=== PATIENT | male | born 1975 | race Caucasian/White ===

== ENCOUNTER 2018-05-27 15:56 | Emergency (ER) | payer OTHER ==
[2018-05-27 16:50] VITALS: TEMP 98.5
[2018-05-27] MEDS ORDERED: KETOROLAC 30 MG/ML 1 ML VIAL IM STA (17:29)
--- NOTE | 2018-05-27 17:30 | ED ---
General Adult HPI - General Chief complaint: Back Pain/Injury Stated complaint: [facility]-Back Pain Time Seen by Provider: 05/27/18 17:00 Source: patient, RN notes reviewed Mode of arrival: ambulatory Limitations: no limitations - History of Present Illness Initial comments: Patient is a 42-year-old male who presents to the emergency department with complaint of low back pain since May 04 when he was working on duct work at work. He denies any trauma or fall. He reports that he saw a doctor 1 week ago and had x-rays of his entire spine done and were normal, per patient. He reports having seen the worker's comp doctor through his work as well. He reports going to physical therapy. He has not taken anything for pain today. He would like to try Toradol here. He wants an MRI done now. Denies saddle anesthesia, bowel or bladder incontinence. Patient denies any recent fever, chills, shortness of breath, chest pain, abdominal pain, nausea or vomiting, numbness or tingling, headaches or visual changes, or any other complaints. - Related Data Previous Rx's Medication Instructions Recorded Ibuprofen [Motrin] 600 mg PO Q6HR PRN #28 05/27/18 Allergies Allergy/AdvReac Type Severity Reaction Status Date / Time No Known Allergies Allergy Verified 05/27/18 16:49 Review of Systems ROS Statement: Those systems with pertinent positive or pertinent negative responses have been documented in the HPI. ROS Other: All systems not noted in ROS Statement are negative. Past Medical History Past Medical History: No Reported History History of Any Multi-Drug Resistant Organisms: None Reported Additional Past Surgical History / Comment(s): NEPHRECTOMY Past Psychological History: No Psychological Hx Reported Smoking Status: Never smoker Past Alcohol Use History: Occasional Past Drug Use History: None Reported General Exam Limitations: no limitations General appearance: alert, in no apparent distress Head exam: Present: atraumatic, normocephalic Eye exam: Present: normal appearance Respiratory exam: Present: normal lung sounds bilaterally. Absent: wheezes, rales, rhonchi Cardiovascular Exam: Present: regular rate, normal rhythm Extremities exam: Present: normal capillary refill Back exam: Present: tenderness (Upper left trapezius muscle tenderness to palpation.). Absent: vertebral tenderness Neurological exam: Present: alert, oriented X3, normal gait. Absent: motor sensory deficit Skin exam: Present: warm, dry Course Vital Signs 05/27/18 05/27/18 16:46 17:34 Temperature 98.5 F Pulse Rate 94 82 Respiratory 16 20 Rate Blood Pressure 144/94 144/85 O2 Sat by Pulse 97 96 Oximetry Medical Decision Making - Medical Decision Making Patient presents to the ER asking for an MRI. No alarming symptoms found here. Will refer patient to orthopedics. Patient changed his mind and no longer wants Toradol here. Will prescribe ibuprofen. Case discussed in detail with attending physician Dr. Andres. Disposition Clinical Impression: Back pain Disposition: HOME SELF-CARE Condition: Good Instructions (If sedation given, give patient instructions): Back Pain (ED) Additional Instructions: Follow-up with your primary care provider and orthopedics in 1-2 days. Return to the emergency department if your symptoms worsen or any other concerns. Prescriptions: Ibuprofen [Motrin] 600 mg PO Q6HR PRN #28 PRN Reason: Pain Is patient prescribed a controlled substance at d/c from ED?: No Referrals: Clyde Snell DO [Primary Care Provider] - 1-2 days Moisés Ramírez MD [STAFF PHYSICIAN] - 1-2 days Time of Disposition: 18:25
[2018-05-27 17:42] VITALS: BP 144/85; PULSE 82; RESP 20
== END 2018-05-27 18:45 | disposition home or self-care (01) ==
LOC: EC 15:56
DX: M54.5 Low back pain (principal); Z90.5 Acquired absence of kidney; X58.XXXA Exposure to other specified factors, initial encounter; Y92.69 Other specified industrial and construction area as the place of occurrence of the external cause; Y99.0 Civilian activity done for income or pay; Z53.29 Procedure and treatment not carried out because of patient's decision for other reasons
CPT/HCPCS: 99283

== ENCOUNTER → 2018-09-10 | Outpatient (CLI) | payer OTHER ==
[2018-09-10 13:03] LABS: Appearance,Urine Clear (Clear); Bilirubin,Urine Negative (Negative); Blood,Urine Negative (Negative); Color,Urine Yellow; Glucose,Urine (UA) Trace (Negative); Ketones,Urine Negative (Negative); Leukocyte Esterase,Urine Negative (Negative); Nitrite,Urine Negative (Negative); Protein,Urine Negative (Negative); Specific Gravity,Urine 1.017 (1.001-1.035); Urobilinogen,Urine <2.0 mg/dL (<2.0)
[2018-09-10 13:11] LABS: INR 0.9 (<1.2); Partial Thromboplastin Time 23.4 sec (22.0-30.0); Prothrombin Time 9.7 sec (9.0-12.0)
[2018-09-10 13:12] LABS: Albumin 4.5 g/dL (3.5-5.0); Calcium 9.7 mg/dL (8.4-10.2); Potassium 4.3 mmol/L (3.5-5.1); Total Bilirubin 0.7 mg/dL (0.2-1.3); Total Protein 7.3 g/dL (6.3-8.2)
[2018-09-10 13:14] LABS: Basophils % (A) 1 %; Eosinophils # (A) 0.2 k/uL (0-0.7); Eosinophils % (A) 3 %; HCT 45.4 % (39.0-53.0); HGB 15.4 gm/dL (13.0-17.5); Lymphocytes # (A) 1.6 k/uL (1.0-4.8); Lymphocytes % (A) 30 %; MCH 31.9 pg (25.0-35.0); MCHC 33.8 g/dL (31.0-37.0); MCV 94.4 fL (80.0-100.0); Mean Platelet Volume 8.1; Monocytes # (A) 0.3 k/uL (0-1.0); Monocytes % (A) 6 %; Neutrophils # (A) 3.2 k/uL (1.3-7.7); Neutrophils % (A) 60 %; Platelet Count 228 k/uL (150-450); RBC 4.81 m/uL (4.30-5.90); RDW 15.1 % (11.5-15.5); WBC 5.3 k/uL (3.8-10.6)
--- NOTE | 2018-09-10 13:18 | XR ---
EXAMINATION TYPE: XR chest 2V DATE OF EXAM: 09/10/2018 COMPARISON: NONE TECHNIQUE: PA and lateral views submitted. HISTORY: pain low back FINDINGS: The lungs are clear and there is no pneumothorax, pleural effusion, or focal pneumonia. Hypertrophi c change of the spine. IMPRESSION: 1. No acute process.
== END | disposition home or self-care (01) ==
LOC: LABPAT 12:05
PROVIDERS: ATTEND Orthopaedic Surgery Orthopaedic Surgery of the Spine
DX: Z01.810 Encounter for preprocedural cardiovascular examination (principal); Z01.812 Encounter for preprocedural laboratory examination; M48.061 Spinal stenosis, lumbar region without neurogenic claudication
CPT/HCPCS: 71046; 80053; 81003; 85025; 85610; 85730; 87070; 93005

== ENCOUNTER → 2018-09-25 | Outpatient (CLI) | payer OTHER ==
--- NOTE | 2018-09-25 13:12 | NM ---
EXAMINATION TYPE: NM bone 3 phase DATE OF EXAM: 09/25/2018 COMPARISON: NONE HISTORY: 43-year-old male with low back pain, intervertebral disc degeneration, disorders with radicu lopathy, lumbar region Technique: Triple phase bone scintigraphy was performed following the injection of 25.6 mCi Tc 99m MD P. Immediate images and 3 hours post injection images acquired. Imaging was centered over the abdome n/lumbar spine FINDINGS: Posterior flow images centered along the lumbar spine show no activity to the left kidney. Otherwise, physiologic blood pool is demonstrated. Pool images show some right kidney and right ureteral activity. Delayed images show no focal abnormal increased tracer activity within the lumbar spine. IMPRESSION: 1. Absent activity to the left kidney. Correlate for surgical or congenital absence or renal atresia. 2. No specific abnormal tracer activity along the lumbar spine region.
== END | disposition home or self-care (01) ==
LOC: RADNMMAIN 06:58
PROVIDERS: ATTEND Orthopaedic Surgery Orthopaedic Surgery of the Spine
DX: M51.16 Intervertebral disc disorders with radiculopathy, lumbar region (principal); R93.422 Abnormal radiologic findings on diagnostic imaging of left kidney; M62.830 Muscle spasm of back; R20.2 Paresthesia of skin
CPT/HCPCS: 78315; A9503

== ENCOUNTER → 2018-10-19 | Outpatient (CLI) | payer OTHER ==
[2018-10-19 11:01] LABS: Basophils % (A) 0 %; Eosinophils # (A) 0.2 k/uL (0-0.7); Eosinophils % (A) 3 %; HCT 46.5 % (39.0-53.0); HGB 15.6 gm/dL (13.0-17.5); Lymphocytes # (A) 1.8 k/uL (1.0-4.8); Lymphocytes % (A) 29 %; MCH 31.9 pg (25.0-35.0); MCHC 33.5 g/dL (31.0-37.0); MCV 95.1 fL (80.0-100.0); Mean Platelet Volume 7.4; Monocytes # (A) 0.3 k/uL (0-1.0); Monocytes % (A) 5 %; Neutrophils # (A) 3.8 k/uL (1.3-7.7); Neutrophils % (A) 61 %; Platelet Count 239 k/uL (150-450); RBC 4.89 m/uL (4.30-5.90); RDW 12.5 % (11.5-15.5); WBC 6.3 k/uL (3.8-10.6)
[2018-10-19 11:11] LABS: INR 0.9 (<1.2); Partial Thromboplastin Time 23.9 sec (22.0-30.0); Prothrombin Time 9.8 sec (9.0-12.0)
[2018-10-19 11:12] LABS: Potassium 4.4 mmol/L (3.5-5.1)
[2018-10-19 11:29] LABS: Appearance,Urine Clear (Clear); Bacteria,Urine Rare /hpf; Bilirubin,Urine Negative (Negative); Blood,Urine Trace (Negative); Color,Urine Yellow; Glucose,Urine (UA) Negative (Negative); Hyaline Casts,Urine 2 /lpf (0-2); Ketones,Urine Negative (Negative); Leukocyte Esterase,Urine Negative (Negative); Mucus,Urine Moderate /hpf; Nitrite,Urine Negative (Negative); PH, Urine 5.5 (5.0-8.0); Protein,Urine 1+ (Negative); RBC,Urine 6 /hpf (0-5); Sperm,Urine Occasional /hpf; Squamous Epithelial Cell,Urine <1 /hpf (0-4); WBC,Urine 5 /hpf (0-5)
== END | disposition home or self-care (01) ==
LOC: LABPAT 10:29
PROVIDERS: ATTEND Orthopaedic Surgery Orthopaedic Surgery of the Spine
DX: Z01.812 Encounter for preprocedural laboratory examination (principal); M51.26 Other intervertebral disc displacement, lumbar region
CPT/HCPCS: 36415; 80048; 81001; 85025; 85610; 85730

== ENCOUNTER 2018-10-28 07:30 | Inpatient (IN) | payer OTHER ==
[~2018-10-28 07:30] MED LIST: BACITRACIN 50,000 UNIT, POLYMYXIN B 500,000 UNIT in SODIUM CHLORIDE 0.9% IRRIGATIO 1,00... IRRIGATION ONE; DEXAMETHASONE SOD PHOSPHATE 10 MG/ML 1 ML VIAL IV ONE; LIDOCAINE 1% 20 ML VIAL (10MG/ML) FOR IV START INTRADERMA PRN; ONDANSETRON 4 MG/2 ML VIAL IVP ONE; ONDANSETRON 4 MG/2 ML VIAL IVP PRN
[2018-10-28] MEDS: LACTATED RINGERS 1,000 ML IV SCH (10:03)
[2018-10-28] MEDS ORDERED: LIDOCAINE 1% INJ 10MG/ML (20 ML MDV) ONE (12:30)
[2018-10-28] MEDS ORDERED: SUCCINYLCHOLINE CHLORIDE 100 MG/5 ML SYR IV ONE (12:30)
[2018-10-28] MEDS ORDERED: fentaNYL (PF) 50 MCG/ML 2 ML AMP ONE (12:30)
[2018-10-28] MEDS ORDERED: PROPOFOL 10 MG/ML 20 ML VIAL IV ONE (12:30)
[2018-10-28] MEDS ORDERED: THROMBIN (BOVINE) 5,000 UNIT VIAL TOPICAL ONE (12:30)
[2018-10-28] MEDS ORDERED: LIDOCAINE 0.5%-EPI 1:200,000 50 ML VIAL SQ ONE (12:30)
[2018-10-28] MEDS ORDERED: MIDAZOLAM 2 MG/2 ML VIAL ONE (12:30)
[2018-10-28] MEDS ORDERED: HYDROmorphone (PF) 1 MG/ML ONE (12:30)
[2018-10-28] MEDS ORDERED: GELATIN SPONGE,ABSORB (LARGE) 1 EACH SPONGE TOPICAL ONE (12:30)
[2018-10-28] MEDS ORDERED: NEOSTIGMINE 1 MG/ML 10 ML VIAL ONE (12:30)
[2018-10-28] MEDS ORDERED: KETAMINE 10 MG/ML 20 ML VIAL ONE (12:30)
[2018-10-28] MEDS ORDERED: DEXAMETHASONE SOD PHOS (MDV) 100 MG/10 ML VIAL ONE (12:30)
[2018-10-28] MEDS ORDERED: ROCURONIUM BROMIDE 10 MG/ML 10 ML VIAL IV ONE (12:30)
[2018-10-28] MEDS ORDERED: PHENYLEPHRINE-0.9% NACL SYG 1 MG/10 ML SYRINGE ONE (12:30)
[2018-10-28] MEDS ORDERED: GLYCOPYRROLATE 0.2 MG/ML 2 ML VIAL ONE (12:30)
[2018-10-28] MEDS: HYDROmorphone 0.5 MG/0.5 ML SYRINGE IVP PRN ×5 (14:09→16:45)
[2018-10-28] MEDS ORDERED: LACTATED RINGERS 1,000 ML IV ONE (14:37)
[2018-10-28] MEDS ORDERED: HYDROcodone/APAP 5-325MG 1 EACH TAB PO PRN (15:39)
[2018-10-28] MEDS ORDERED: BENZOCAINE/MENTHOL LOZENG 1 EACH LOZENGE MUCOUS MEM PRN (15:39)
[2018-10-28] MEDS ORDERED: MAGNESIUM HYDROXIDE 2,400 MG/10 ML CUP PO PRN (15:39)
[2018-10-28] MEDS ORDERED: HYDROmorphone 0.5 MG/0.5 ML SYRINGE IVP PRN (15:39)
--- NOTE | 2018-10-28 15:41 | XR ---
EXAMINATION TYPE: XR lumbar spine 1V, FL guidance operating room DATE OF EXAM: 10/28/2018 CLINICAL HISTORY: Minimally invasive lumbar surgery. Fluoroscopic documentation. TECHNIQUE: Fluoroscopy. COMPARISON: None. FINDINGS: Fluoroscopic guidance was provided during pain relief procedure performed by Dr. Haas. A total of 1 minute and 40 seconds of fluoroscopic time was utilized during the procedure and 3 spot i mages are acquired. Images acquired shows needle localization at multiple levels in the lumbar spine. IMPRESSION: As Above.
--- NOTE | 2018-10-28 15:48 | P.OP ---
Date of Procedure: 10/28/18 Preoperative Diagnosis: Herniated nucleus pulposis L4 5, stenosis L4 5, low back pain, lower extremity radiculopathy Postoperative Diagnosis: Same Anesthesia: GETA Pathology: none sent Condition: stable Disposition: PACU Description of Procedure: DESCRIPTION OF PROCEDURE(S): BRIEF OPERATIVE NOTE Preoperative Diagnosis: Herniated nucleus pulposis L4 5, stenosis L4 5, low back pain, lower extremity radiculopathy Postoperative Diagnosis:Herniated nucleus pulposis L4 5, stenosis L4 5, low back pain, lower extremity radiculopathy Procedure: Laminectomy and decompression L4 5 Minimally invasive Posterior lateral decompression and facet fusion L4 5 Minimally invasive Transforaminal lumbar interbody fusion for a 360 fusion L4 5 Discectomy for decompression L4 5 Placement of interbody graft L4 5 Local autogenous bone grafting Harvesting of bone marrow aspirate. The vertebral body and pedicle of L4 Use of Cell Saver Use of bone graft extenders Surgeon: Dr. Haas Nitrocellulose Operator: James BERUMEN who is present throughout the entire the case persistence during positioning, dissection, exposure, visualization, and all crucial elements of the case as well as closure. Anesthesia: General anesthesia per Dr. Mullen Estimated blood loss: Approximately 150 mL Complications: None apparent Components implanted: K2M minimally invasive [place] pedicle screw system with disc 8013 mm interbody cage with 1 large osteal amp sponge and 30 mL of DBX bone fibers to supplemental local autogenous and bone marrow aspirate graft Disposition: To recovery room in good stable condition. OPERATIVE INDICATIONS The patient has had long-standing issues in their lower back and lower extremities. He started having pain when he had an injury in May. Since that time he has had severe problems in his back and into his lower extremities. He was found have significant changes at his lumbar spine with disc herniation causing compression bilaterally which correlated with his low back and lower extremity symptoms. The patient was not having any significant or long-term response to aggressive conservative treatment over the past 6 months. The patient has been through conservative treatment. We discussed various treatment options including surgery, and the patient wishes to proceed with surgery We discussed the risk, patient's alternatives and benefits of surgery including but not limited to, risk of bleeding risk of infection, risk of need for further surgery, risk of decreased, loss of motion, muscle function, malunion nonunion, hardware failure, nerve damage, paralysis, heart attack, blindness and . OPERATIVE SUMMARY After discussing all the risks, patient alternatives and benefits at length, the patient elected to proceed with surgical intervention, signed informed consent, and presented for their procedure. The patient was seen and examined in the preoperative holding area and the surgical site was marked. The patient was given antibiotics and brought to the operating room. The patient was sedated and intubated by anesthesia in standard fashion. The patient was positioned on to the operating room table in a prone position on the appropriate frame which was well-padded and well molded. We were careful to pad any bony prominences and pressure points. We were careful to maintain the patient's cervical spine and good neutral alignment and position throughout. The patient was prepped and draped in a normal standard fashion. An appropriate timeout and keystone protocol performed. We were able to proceed with the surgery. The local wound area was infiltrated with local anesthetic. I was able utilize C-arm guidance to establish appropriate position over the pedicles bilaterally at the appropriate levels at L4 5. With the appropriate levels confirmed was able to make small stab incisions over the appropriate pedicle sites bilaterally. Utilizing C-arm in his house able to establish a Jamshidi needle over the lateral aspect of the pedicle and advanced the trocar into the pedicle being careful not to breech superiorly inferiorly medially or laterally. Position was confirmed regularly with AP and lateral images on C- arm. I was able to establish the trocar into the pedicle appropriately into the posterior aspect of the vertebral body bilaterally at the appropriate levels at L4 5. This was done at each of the pedicle positions and each of the vertebrae. I was able place the guidewire into the trocar and into the vertebral body appropriately under C-arm guidance. At L4 on the right was able to withdraw approximately 20 mL of bone marrow aspirate through the trocar from the vertebral body. Dissection was taken down over the wire to the appropriate starting position for the screw placed. The appropriate length screw was chosen, threaded over the guidewire and screwed appropriately into the pedicle and vertebral body under C-arm guidance in excellent alignment and position with good bony purchase. This is done at each of the screw sites at the appropriate levels at L4 and L5. With the screws intact I extended the incision to connect the screw hole sites on the most symptomatic side on the left. I dissected down to establish access over the pars and lamina to the base of the spinous process. I was able to expose the facet joint. The capsule the facet was taken down and showed some facet arthrosis at the joint. I was able to use a combination of curettes and [place] rongeurs and a high-speed drill to take down the facet joint and do a facetectomy. Partial laminectomy was also performed. I was able get excellent foraminal decompression and central decompression with undermining across midline to perform a laminectomy centrally and contralaterally. I was able get good central decompression. The ligamentum flavum was taken down to further decompress centrally and at bilateral neural foramen. I was able to expose the disc space and visualize the traversing nerve root. Note was made of disc herniation and protrusion at the level causing further compression of the nerve root. I was able to establish a annulotomy at the appropriate level protecting soft tissue and neural structures. I performed a complete discectomy with a combination of curettes and rasps and scrapers. I was able get good endplate preparation at the disc space. I sized for the appropriate size interbody spacer protecting the soft tissue and neural structures. The wound was copiously irrigated and suctioned dry. There is no evidence of any dural tear or leak. I was able to pack the disc space with local autogenous bone graft as well as a small amount of bone graft which was also placed into the interbody cage itself. The patient had a fairly tall disc space and we used a 13 mm interbody cage. Protecting the soft tissue structures and neural structures I was able place the interbody cage in good alignment and good position with good fit and fill at the interbody space. His issues was confirmed with C-arm guidance. Good hemostasis maintained. There is no evidence of any dural tear or leak. The wound was irrigated and suctioned dry. With the hardware intact, intraoperative C-arm imaging was again taken which showed good alignment and position of the hardware at the appropriate levels. We were then able to measure, contour and place the rods and appropriate hardware bilaterally. I was able to place capcrews, tighten them down, and torque them with the torque screwdriver appropriately. With this intact I was able to place the local autogenous bone graft with additional bone graft enhancer as necessary into the posterior lateral gutters over the decorticated transverse processes and facet joint. The remainder of the bone graft was placed over the facet joint on the contralateral side after taking down the facet joint capsule. With the bone graft intact, a stable construct, and good decompression at the appropriate levels, we were able to proceed with closure. Good hemostasis was maintained. There is no evidence of dural tear or leak. The fascia was closed for a watertight closure. he subcuticular tissue was closed with absorbable suture. The wound was cleaned and dried and dressed with the appropriate dressing. The drapes were broken down. The patient was gently rolled back onto their hospital bed being careful to maintain their cervical spine and good neutral alignment and position. They were woken up by anesthesia, extubated, and brought to the recovery room in good stable condition. The patient will be admitted to the hospital for appropriate postoperative care, medical management and monitoring. We will continue to follow them closely about the postoperative course.
[2018-10-28] MEDS: SODIUM CHLORIDE 0.9% 1,000 ML IV SCH (16:49)
[2018-10-28 17:14] VITALS: BMI 42.2
[2018-10-28] MEDS: ceFAZolin 3 GM in SODIUM CHLORIDE 0.9% 100 ML IVPB SCH ×2 (17:42→23:14)
[2018-10-28] MEDS: KETOROLAC 30 MG/ML 1 ML VIAL IVP SCH ×3 (17:45→20:52)
[2018-10-28] MEDS: HYDROcodone/APAP 5-325MG 1 EACH TAB PO PRN (21:07)
[2018-10-28] MEDS ORDERED: ONDANSETRON 4 MG/2 ML VIAL IVP PRN (21:31)
--- NOTE | 2018-10-28 22:38 | P.CONS ---
History of Present Illness - Reason for Consult Consult date: 10/28/18 Medical management Requesting physician: Angela Haas - Chief Complaint Back pain - History of Present Illness Consultation: This is a 43-year-old patient who is a long-standing history of back pain. It has been progressively getting worse. Initially was localized to lower back. This started rate radiating down the left leg. Continued to get worse. It was worse with activity and better with rest. Since conservative management had failed decided to proceed for surgery. No involvement of bowel or urine. Patient has undergone lumbar surgery today. Has significant pain. Some pain in the right leg. is present. No nausea vomiting. Review of systems: GEN.: None EYES: None HEENT: None NECK: None RESPIRATORY: None CARDIOVASCULAR: None GASTROINTESTINAL: None GENITOURINARY: None MUSCULOSKELETAL: As above LYMPHATICS: None HEMATOLOGICAL: None PSYCHIATRY: None NEUROLOGICAL: Radiculopathy as above Past medical history: Chronic low back pain Social history: Does does not smoke. Alcohol occasionally. Works with heating and cooling. . Family history: Reviewed, noncontributory to presentation Physical examination: VITAL SIGNS: Noted in the electronic records from today GENERAL: [BMI 40.4, laying in bed somewhat uncomfortable]. EYES: [Pupils equal. Conjunctiva saadia]l. HEENT: [External appearance of nose and ears normal, oral cavity grossly normal]. NECK: [JVD not raised; masses not palpable]. HEART: [First and second heart sounds are normal; no edema]. LUNGS:[ Respiratory rate normal; clear to auscultation]. ABDOMEN: [Soft, nontender, liver spleen not palpable, no masses palpable]. PSYCH: [Alert and oriented x3; mood and affect saadia]l. NEUROLOGICAL: [Cranial nerves grossly intact; no facial asymmetry, ]. LYMPHATICS: [No lymph nodes palpable in the axilla and neck MUSCULOSKELETAL: Dressing over the lumbar spine] INVESTIGATIONS, reviewed in the clinical context: White count 6.3 hemoglobin 15.6 creatinine 1.39 from October 19 Assessment: -Herniated nucleus pulposis L4 5, stenosis L4 5, low back pain, lower extremity radiculopathy, leading to laminectomy and decompression L4-L5 -Morbid obesity BMI 40.4 -We'll rule out chronic kidney disease. Patient urine had 1+ protein on October 19 Plan: Continue current medication due to plan. Order renal ultrasound. Patient has currently Venodyne boots for DVT prophylaxis. Care was discussed with the patient and at the bedside Thank you Dr. Haas Past Medical History Past Medical History: No Reported History Additional Past Medical History / Comment(s): herniated disk, History of Any Multi-Drug Resistant Organisms: None Reported Additional Past Surgical History / Comment(s): NEPHRECTOMY(donated left kidney) Past Anesthesia/Blood Transfusion Reactions: No Reported Reaction Additional Past Anesthesia/Blood Transfusion Reaction / Comm: very large neck noted by PCP on clearance form Smoking Status: Never smoker - Past Family History Father Family Medical History: Cancer Medications and Allergies Home Medications Medication Instructions Recorded Confirmed Type No Known Home Medications 09/17/18 10/28/18 History Allergies Allergy/AdvReac Type Severity Reaction Status Date / Time No Known Allergies Allergy Verified 10/28/18 09:43 Physical Exam Vitals: Vital Signs Temp Pulse Pulse Resp BP BP Pulse Ox 10/28/18 19:26 97.9 F 92 12 133/85 97 10/28/18 17:45 82 130/83 97 10/28/18 17:30 86 125/86 96 10/28/18 17:15 89 118/83 95 10/28/18 17:00 98 F 85 16 129/85 93 L 10/28/18 16:45 76 18 156/81 97 10/28/18 16:30 84 16 158/81 96 10/28/18 16:15 73 20 146/88 97 10/28/18 16:00 75 16 122/79 98 10/28/18 15:47 96.9 F L 76 14 143/87 10/28/18 10:02 97.2 F L 52 L 16 151/97 96 Intake and Output 10/28/18 10/28/18 10/28/18 06:59 14:59 22:59 Intake Total 1751 350 Output Total 395 Balance 1751 -45 Intake: IV 1751 350 Output: Urine 355 Estimated Blood Loss 40
[2018-10-28] MEDS: HYDROmorphone 1 MG/ML 1 ML SYRINGE IVP PRN (23:14)
[2018-10-29] MEDS: KETOROLAC 30 MG/ML 1 ML VIAL IVP SCH ×5 (00:04→23:47)
[2018-10-29] MEDS: HYDROcodone/APAP 5-325MG 1 EACH TAB PO PRN ×3 (01:32→09:58)
[2018-10-29] MEDS: HYDROmorphone 1 MG/ML 1 ML SYRINGE IVP PRN ×4 (03:26→20:30)
[2018-10-29] MEDS: SODIUM CHLORIDE 0.9% 1,000 ML IV SCH ×2 (05:15→23:53)
[2018-10-29] MEDS: LACTATED RINGERS 1,000 ML IV SCH (05:16)
[2018-10-29 07:39] LABS: Basophils % (A) 0 %; Eosinophils # (A) 0.1 k/uL (0-0.7); Eosinophils % (A) 1 %; HCT 41.3 % (39.0-53.0); HGB 13.6 gm/dL (13.0-17.5); Lymphocytes # (A) 0.8 k/uL (1.0-4.8); Lymphocytes % (A) 5 %; MCH 31.5 pg (25.0-35.0); MCV 95.7 fL (80.0-100.0); Mean Platelet Volume 7.8; Monocytes # (A) 0.8 k/uL (0-1.0); Monocytes % (A) 5 %; Neutrophils # (A) 13.4 k/uL (1.3-7.7); Neutrophils % (A) 88 %; Platelet Count 212 k/uL (150-450); RBC 4.31 m/uL (4.30-5.90); RDW 12.4 % (11.5-15.5); WBC 15.3 k/uL (3.8-10.6)
[2018-10-29 07:53] LABS: Calcium 9.3 mg/dL (8.4-10.2); Potassium 4.6 mmol/L (3.5-5.1)
[2018-10-29] MEDS: SENNOSIDES-DOCUSATE SODIUM 1 EACH TAB PO SCH (08:25)
--- NOTE | 2018-10-29 10:16 | P.PN ---
Progress Note - Text Progress Note Date: 10/29/18 Postoperative day #1 Patient is seen and examined today at bedside. The patient has some pain around the surgical site as expected. Pain is being controlled with medication. He is experiencing quite a bit of spasm in his low back which is quite severe for him. He is also having some soreness over his left shoulder. He denies weakness in his left arm or his legs. Physical Exam Afebrile with stable vital signs Abdomen is soft nontender. Chest has good excursion deep and space expiration The incision site is clean dry and intact. No erythema there is no purulence. Extremities have not had neurologic change from prior to surgery. He has good motion in his left upper extremity and bilateral lower extremities. His spasms in his low back pain tries to move. Calves and thighs were soft nontender without evidence of DVT. Assessment/Plan Postoperative day #1 status post minimally invasive decompression and fusion L4 5 for his disc herniation with stenosis Patient is progressing as expected from the surgery. He is experiencing significant spasm in his back and for his left shoulder and may do well with a muscle relaxant and possibly Valium an as-needed basis. He has not yet been out of bed and will try to get him mobile today with physical therapy. We will continue to increase the patient's mobilization with therapy. We will continue pain control with oral or IV medications. We'll continue to follow patient closely.
[2018-10-29] MEDS: CYCLOBENZAPRINE 10 MG TAB PO PRN (11:19)
--- NOTE | 2018-10-29 16:33 | P.PN ---
Progress Note - Text Progress Note Date: 10/29/18 - Chief Complaint Back pain Interval history: This is a 43-year-old patient who is a long-standing history of back pain. It has been progressively getting worse. Initially was localized to lower back. This started rate radiating down the left leg. Continued to get worse. It was worse with activity and better with rest. Since conservative management had failed decided to proceed for surgery. No involvement of bowel or urine. Patient has undergone lumbar surgery Today-laying in bed. Still having significant lower back pain. At the operative site. Did make urine. Did tolerate some diet. Her nausea vomiting. at the bedside. Review of systems: Was done for constitutional, cardiovascular, GI, pulmonary. Musculoskeletal, relevant finding as above Active Medications Hydrocodone Bitart/Acetaminophen ([place] 5-325) 1 each PO Q4HR PRN PRN Reason: Moderate Pain Hydrocodone Bitart/Acetaminophen ([place] 5-325) 2 each PO Q4HR PRN PRN Reason: Moderate Pain Last Admin: 10/29/18 09:58 Dose: 2 each Documented by: Benzocaine/Menthol (Cepacol Lozenge) 1 each MUCOUS MEM Q4HR PRN PRN Reason: Sore Throat Cyclobenzaprine HCl (Flexeril) 10 mg PO TID PRN PRN Reason: Muscle Spasm Last Admin: 10/29/18 11:19 Dose: 10 mg Documented by: Diazepam (Valium) 5 mg PO BID JIGNESH Hydromorphone HCl (Dilaudid) 0.5 mg IVP Q4HR PRN PRN Reason: Pain Last Admin: 10/28/18 19:20 Dose: 0.5 mg Documented by: Hydromorphone HCl (Dilaudid) 1 mg IVP Q4HR PRN PRN Reason: Pain Last Admin: 10/29/18 16:08 Dose: 1 mg Documented by: Lactated Ringer's (Lactated Ringers) 1,000 mls @ 20 mls/hr IV .Q24H [facility] Last Admin: 10/29/18 05:16 Dose: Not Given Documented by: Sodium Chloride (Saline 0.9%) 1,000 mls @ 75 mls/hr IV .[id number] [facility] Last Admin: 10/29/18 05:15 Dose: 75 mls/hr Documented by: Ketorolac Tromethamine (Toradol) 30 mg IVP Q6HR JIGNESH Stop: 10/30/18 06:01 Last Admin: 10/29/18 12:31 Dose: 30 mg Documented by: Lidocaine HCl (.Xylocaine 1% Inj (10mg/Ml) For Iv Start) 0.1 ml INTRADERMA PER PROTOCOL PRN PRN Reason: IV Start Last Admin: 10/28/18 10:03 Dose: 0.1 ml Documented by: Magnesium Hydroxide (Milk Of Magnesia) 2,400 mg PO DAILY PRN PRN Reason: Constipation Ondansetron HCl (Zofran) 4 mg IVP ONCE PRN PRN Reason: Nausea And Vomiting Stop: 10/31/18 06:01 Last Admin: 10/28/18 21:08 Dose: 4 mg Documented by: Ondansetron HCl (Zofran) 4 mg IVP Q6HR PRN PRN Reason: Nausea And Vomiting Last Admin: 10/29/18 06:08 Dose: 4 mg Documented by: Senna/Docusate Sodium (Senokot-S) 1 each PO DAILY JIGNESH Last Admin: 10/29/18 08:25 Dose: Not Given Documented by: Physical examination: VITAL SIGNS: 98, 86, 16, 1 once , 97% on 3 L GENERAL: [BMI 40.4, laying in bed somewhat uncomfortable]. EYES: [Pupils equal. Conjunctiva saadia]l. HEENT: [External appearance of nose and ears normal, oral cavity grossly normal]. NECK: [JVD not raised; masses not palpable]. HEART: [First and second heart sounds are normal; no edema]. LUNGS:[ Respiratory rate normal; clear to auscultation]. ABDOMEN: [Soft, nontender, liver spleen not palpable, no masses palpable]. PSYCH: [Alert and oriented x3; mood and affect saadia]l. MUSCULOSKELETAL: Dressing over the lumbar spine] INVESTIGATIONS, reviewed in the clinical context: White count 15.3 hemoglobin 13.6 potassium 4.6 Assessment: -Herniated nucleus pulposis L4 5, stenosis L4 5, low back pain, lower extremity radiculopathy, leading to laminectomy and decompression L4-L5 -Morbid obesity BMI 40.4 -No chronic kidney disease -Leukocytosis likely reactive from surgery. No evidence of infection Plan: Care was discussed with the patient and the . Encouraged to be out of bed. Pain control is in place. We'll follow Thank you Dr. Haas
[2018-10-29] MEDS: DIAZEPAM 5 MG TAB PO SCH (20:37)
[2018-10-30] MEDS: HYDROmorphone 1 MG/ML 1 ML SYRINGE IVP PRN (04:37)
[2018-10-30] MEDS: KETOROLAC 30 MG/ML 1 ML VIAL IVP SCH (05:16)
[2018-10-30] MEDS: LACTATED RINGERS 1,000 ML IV SCH (05:28)
[2018-10-30] MEDS: HYDROcodone/APAP 5-325MG 1 EACH TAB PO PRN ×3 (06:01→18:19)
[2018-10-30] MEDS: DIAZEPAM 5 MG TAB PO SCH ×2 (07:35→20:44)
[2018-10-30] MEDS: SENNOSIDES-DOCUSATE SODIUM 1 EACH TAB PO SCH (07:35)
[2018-10-30] MEDS: SODIUM CHLORIDE 0.9% 1,000 ML IV SCH ×3 (09:52→22:15)
[2018-10-30] MEDS: CYCLOBENZAPRINE 10 MG TAB PO PRN (10:49)
--- NOTE | 2018-10-30 12:25 | P.PN ---
Progress Note - Text Progress Note Date: 10/30/18 Postoperative day #2 Patient is seen and examined today at bedside. The patient has some pain around the surgical site as expected. Pain is being controlled with medication. His pain is significantly better controlled today though he still needed some IV medication earlier this morning. He has been up and ambulatory into the halls a couple of times a day. He is tolerating his regular diet. He is voiding freely. He is not yet had a bowel movement. Physical Exam Afebrile with stable vital signs Abdomen is soft nontender. Chest has good excursion deep and space expiration The incision site is clean dry and intact. No erythema there is no purulence. There is no active drainage. Extremities have not had neurologic change from prior to surgery. He has sustained dorsal flexion plantar flexion and EHL intact. Negative Homans. Calves and thighs were soft nontender without evidence of DVT. Assessment/Plan Postoperative day #2 status post minimally invasive decompression and fusion L4 5 for his stenosis with disc herniation low back and lower extremity radiculopathy Patient is progressing as expected from the surgery. He has made good progress since yesterday and seems to be cardiac order to some degree. He still requiring some IV pain medications and hopefully will be able to wean down from this to be able convert is fully orals before he goes home. We will continue to increase the patient's mobilization with therapy. We will continue pain control with oral or IV medications. I think that he'll be okay for discharge home likely tomorrow morning on Friday. Potentially he could home this evening if he is comfortable without further IV pain medications we will plan for the morning for now. We'll continue to follow patient closely.
--- NOTE | 2018-10-30 23:17 | P.PN ---
Progress Note - Text Progress Note Date: 10/30/18 - Chief Complaint Back pain Interval history: This is a 43-year-old patient who is a long-standing history of back pain. It has been progressively getting worse. Initially was localized to lower back. This started rate radiating down the left leg. Continued to get worse. It was worse with activity and better with rest. Since conservative management had failed decided to proceed for surgery. No involvement of bowel or urine. Patient has undergone lumbar surgery Today-doing much better today. Waiting for dressing to be changed redness of the patient early this afternoon. Did walk in the hallway. Eating better. At the bedside. Review of systems: Was done for constitutional, cardiovascular, GI, pulmonary. Musculoskeletal, relevant finding as above Active Medications Hydrocodone Bitart/Acetaminophen ([place] 5-325) 1 each PO Q4HR PRN PRN Reason: Moderate Pain Hydrocodone Bitart/Acetaminophen ([place] 5-325) 2 each PO Q4HR PRN PRN Reason: Moderate Pain Last Admin: 10/30/18 18:19 Dose: 2 each Documented by: Benzocaine/Menthol (Cepacol Lozenge) 1 each MUCOUS MEM Q4HR PRN PRN Reason: Sore Throat Cyclobenzaprine HCl (Flexeril) 10 mg PO TID PRN PRN Reason: Muscle Spasm Last Admin: 10/30/18 10:49 Dose: 10 mg Documented by: Diazepam (Valium) 5 mg PO BID [facility] Last Admin: 10/30/18 20:44 Dose: 5 mg Documented by: Hydromorphone HCl (Dilaudid) 0.5 mg IVP Q4HR PRN PRN Reason: Pain Last Admin: 10/28/18 19:20 Dose: 0.5 mg Documented by: Hydromorphone HCl (Dilaudid) 1 mg IVP Q4HR PRN PRN Reason: Pain Last Admin: 10/30/18 04:37 Dose: 1 mg Documented by: Sodium Chloride (Saline 0.9%) 1,000 mls @ 75 mls/hr IV .[id number] [facility] Last Admin: 10/30/18 22:15 Dose: Not Given Documented by: Magnesium Hydroxide (Milk Of Magnesia) 2,400 mg PO DAILY PRN PRN Reason: Constipation Ondansetron HCl (Zofran) 4 mg IVP ONCE PRN PRN Reason: Nausea And Vomiting Stop: 10/31/18 06:01 Last Admin: 10/28/18 21:08 Dose: 4 mg Documented by: Ondansetron HCl (Zofran) 4 mg IVP Q6HR PRN PRN Reason: Nausea And Vomiting Last Admin: 10/29/18 06:08 Dose: 4 mg Documented by: Senna/Docusate Sodium (Senokot-S) 1 each PO DAILY JIGNESH Last Admin: 10/30/18 07:35 Dose: 1 each Documented by: Physical examination: VITAL SIGNS: 98.7, 76, 16, 115/71, 96% room air GENERAL: [BMI 40.4, laying in bed more comfortable today]. EYES: [Pupils equal. Conjunctiva saadia]l. HEENT: [External appearance of nose and ears normal, oral cavity grossly normal]. NECK: [JVD not raised; masses not palpable]. HEART: [First and second heart sounds are normal; no edema]. LUNGS:[ Respiratory rate normal; clear to auscultation]. ABDOMEN: [Soft, nontender, liver spleen not palpable, no masses palpable]. PSYCH: [Alert and oriented x3; mood and affect saadia]l. MUSCULOSKELETAL: Dressing over the lumbar spine] INVESTIGATIONS, reviewed in the clinical context: No labs from today Assessment: -Herniated nucleus pulposis L4 5, stenosis L4 5, low back pain, lower extremity radiculopathy, leading to laminectomy and decompression L4-L5 -Morbid obesity BMI 40.4 -No chronic kidney disease -Leukocytosis likely reactive from surgery. No evidence of infection Plan: Care was discussed with the patient and . Doing better. Also discussed with Dr. Haas.
[2018-10-31] MEDS: HYDROcodone/APAP 5-325MG 1 EACH TAB PO PRN ×3 (00:36→11:04)
[2018-10-31 01:47] VITALS: RESP 18
[2018-10-31] MEDS: DIAZEPAM 5 MG TAB PO SCH (07:33)
[2018-10-31] MEDS: SENNOSIDES-DOCUSATE SODIUM 1 EACH TAB PO SCH (07:33)
[2018-10-31 07:51] VITALS: BP 122/85; PULSE 72; TEMP 98.1
--- NOTE | 2018-10-31 09:19 | P.DS ---
Providers Date of admission: 10/28/18 09:11 Expected date of discharge: 10/31/18 Attending physician: Angela Haas Consults: 10/28/18 15:41 Consult Physician Routine Consulting Provider: Oliverio Hoskins Consult Reason/Comments: Medical management Do you want consulting provider notified?: Yes Primary care physician: Clyde Snell - Discharge Diagnosis(es) (1) Status post lumbar spinal fusion Current Visit: Yes Status: Acute Hospital Course: The patient is a 43 -year-old male who is status post minimally invasive decompression and fusion L4-L5 on 10/28/[address] Haas. Patient has known history of low back pain and presented to discuss options. After discussion and consideration, patient elected to proceed with surgery. The patient was seen preoperatively and medically cleared for surgery by his primary care physician. The procedure was performed without complications or sequelae. The patient was seen and evaluated at bedside today and denies any new complaints. Pain is reasonably controlled. Dressing is clean dry and intact. The dressing was changed today. His abdomen is soft and nontender. Dorsiflexion, plantarflexion, extensor hallucis longus positive sustaining bilaterally. Calves are soft and nontender. The patient has full foot and ankle motion without difficulty. Patient's bilateral lower extremities are neurovascular intact. Patient is orthopedically stable for discharge to home today. Pertinent Studies: Laboratory Tests 10/29/18 07:26 WBC 15.3 H RBC 4.31 Hgb 13.6 Hct 41.3 Patient Condition at Discharge: Stable Plan - Discharge Summary Discharge Rx Participant: Yes New Discharge Prescriptions: New Cyclobenzaprine [Flexeril] 10 mg PO TID PRN #90 tab PRN Reason: Spasms HYDROcodone/APAP 5-325MG [[place] 5] 1 each PO Q4HR PRN #42 tab PRN Reason: Pain Discharge Medication List Cyclobenzaprine [Flexeril] 10 mg PO TID PRN #90 tab 10/30/18 [Rx] HYDROcodone/APAP 5-325MG [[place] 5] 1 each PO Q4HR PRN #42 tab 10/30/18 [Rx] Follow up Appointment(s)/Referral(s): Anglea Haas DO [Doctor of Osteopathic Medicine] - 2 Weeks [facility]Equipment [NON-STAFF] - As Needed (walker) Activity/Diet/Wound Care/Special Instructions: Keep site clean. May shower with waterproof Tegaderm intact. Do not soak in a tub. On November 02 the patient May remove dressing and then may shower with area uncovered. Leave Steri-Strips intact and allow them to fray off on their own. May ambulate as tolerated. Avoid heavy or rigorous activity. No repetitive bending twisting or lifting. No overhead work. Discharge Disposition: HOME SELF-CARE
[2018-10-31] MEDS: SODIUM CHLORIDE 0.9% 1,000 ML IV SCH (10:30)
== END 2018-10-31 11:19 | disposition home or self-care (01) | DRG 454 ==
LOC: 2ORMAIN 09:11 → 4SSUR 15:36
PROVIDERS: ADMIT Orthopaedic Surgery Orthopaedic Surgery of the Spine; ATTEND Orthopaedic Surgery Orthopaedic Surgery of the Spine
PROC: 0SG00AJ Fusion of Lumbar Vertebral Joint with Interbody Fusion Device, Posterior Approach, Anterior Column, Open Approach (ICD-10-PCS; principal; 2018-10-28 10:40)
PROC: 07DS3ZZ Extraction of Vertebral Bone Marrow, Percutaneous Approach (ICD-10-PCS; principal; 2018-10-28 10:40)
PROC: 0ST20ZZ Resection of Lumbar Vertebral Disc, Open Approach (ICD-10-PCS; principal; 2018-10-28 10:40)
PROC: 0SG0071 Fusion of Lumbar Vertebral Joint with Autologous Tissue Substitute, Posterior Approach, Posterior Column, Open Approach (ICD-10-PCS; principal; 2018-10-28 10:40)
DX: M48.061 Spinal stenosis, lumbar region without neurogenic claudication (principal); Z68.41 Body mass index [BMI] 40.0-44.9, adult; E66.01 Morbid (severe) obesity due to excess calories; M51.16 Intervertebral disc disorders with radiculopathy, lumbar region; D72.829 Elevated white blood cell count, unspecified; Z90.5 Acquired absence of kidney
CPT/HCPCS: 72020; 80048; 85025; 86850; 86900; 86901

== ENCOUNTER 2022-02-25 14:54 | Emergency (ER) | payer MEDICARE, OTHER ==
[2022-02-25 15:23] VITALS: TEMP 98
[2022-02-25 15:50] LABS: Basophils % (A) 1 %; Eosinophils # (A) 0.2 k/uL (0-0.7); Eosinophils % (A) 3 %; HCT 45.5 % (39.0-53.0); HGB 16.2 gm/dL (13.0-17.5); Lymphocytes # (A) 2.1 k/uL (1.0-4.8); Lymphocytes % (A) 29 %; MCH 33.7 pg (25.0-35.0); MCHC 35.6 g/dL (31.0-37.0); MCV 94.8 fL (80.0-100.0); Mean Platelet Volume 8.1; Monocytes # (A) 0.4 k/uL (0-1.0); Monocytes % (A) 6 %; Neutrophils # (A) 4.5 k/uL (1.3-7.7); Neutrophils % (A) 61 %; Platelet Count 225 k/uL (150-450); RDW 12.3 % (11.5-15.5); WBC 7.4 k/uL (3.8-10.6)
[2022-02-25 15:59] LABS: Albumin 4.4 g/dL (3.5-5.0); Calcium 9.3 mg/dL (8.4-10.2); Magnesium 2.1 mg/dL (1.6-2.3); Potassium 4.5 mmol/L (3.5-5.1); Total Bilirubin 0.8 mg/dL (0.2-1.3); Total Protein 7.1 g/dL (6.3-8.2)
[2022-02-25 16:03] LABS: INR 0.9 (<1.2); Prothrombin Time 9.8 sec (9.0-12.0)
--- NOTE | 2022-02-25 17:37 | ED ---
General Adult HPI - General Chief complaint: Neuro Symptoms/Deficit Stated complaint: right arm pain Time Seen by Provider: 02/25/22 17:12 Source: patient, RN notes reviewed Mode of arrival: ambulatory Limitations: no limitations - History of Present Illness Initial comments: Patient is a pleasant 46-year-old male presenting to the emergency department with concerns with right arm discomfort. Onset of symptoms was 7-10 days ago. Patient does have some paresthesias. Patient states there is discomfort however discomfort is mild. Discomfort mostly is the fingertips however does extend upwards some. Discomfort is positional, usually worse with laying on his left side at nighttime. No weakness. Patient states he does have some mild right foot discomfort is well however does have history of chronic back problems. Patient denies loss of sensation. - Related Data Previous Rx's Medication Instructions Recorded Cyclobenzaprine [Flexeril] 10 mg PO TID PRN #90 tab 10/30/18 HYDROcodone/APAP 5-325MG [[place] 5] 1 each PO Q4HR PRN #42 tab 10/30/18 methylPREDNISolone Dose Pack 4 mg PO DIRECTED #21 tab 02/25/22 [Medrol Dose Pack] Allergies Allergy/AdvReac Type Severity Reaction Status Date / Time No Known Allergies Allergy Verified 10/28/18 09:43 Review of Systems ROS Statement: Those systems with pertinent positive or pertinent negative responses have been documented in the HPI. ROS Other: All systems not noted in ROS Statement are negative. Constitutional: Denies: fever Eyes: Denies: eye pain ENT: Denies: ear pain Respiratory: Denies: cough Cardiovascular: Denies: chest pain Endocrine: Denies: fatigue Gastrointestinal: Denies: abdominal pain Genitourinary: Denies: dysuria Musculoskeletal: Reports: back pain (Chronic back pain, unchanged) Skin: Denies: rash Neurological: Reports: as per HPI, paresthesias. Denies: headache, weakness, confusion Past Medical History Past Medical History: No Reported History Additional Past Medical History / Comment(s): herniated disk, History of Any Multi-Drug Resistant Organisms: None Reported Additional Past Surgical History / Comment(s): NEPHRECTOMY(donated left kidney) Past Anesthesia/Blood Transfusion Reactions: No Reported Reaction Additional Past Anesthesia/Blood Transfusion Reaction / Comment(s): very large neck noted by PCP on clearance form Past Psychological History: No Psychological Hx Reported Past Alcohol Use History: Occasional Past Drug Use History: None Reported - Past Family History Father Family Medical History: Cancer General Exam Limitations: no limitations General appearance: alert, in no apparent distress Head exam: Present: normocephalic Eye exam: Present: normal appearance Neck exam: Present: normal inspection. Absent: tenderness Respiratory exam: Present: normal lung sounds bilaterally Cardiovascular Exam: Present: regular rate, normal rhythm Expanded Peripheral pulses: 2+: Radial (R), Radial (L), Dorsalis Pedis (R), Dorsalis Pedis (L) GI/Abdominal exam: Present: soft. Absent: tenderness Extremities exam: Present: normal inspection, full ROM, other (No color change. No weakness. Good cap refill. No tenderness to palpation. Full range of mot ion.). Absent: tenderness, calf tenderness Back exam: Present: normal inspection. Absent: tenderness Neurological exam: Present: alert, oriented X3, CN II-XII intact. Absent: motor sensory deficit Expanded Neurological exam: Present: protecting the airway Speech: Present: fluid speech Cranial nerves: EOM's Intact: Normal Sensory exam: Upper Extremity Light Touch: Normal, Lower Extremity Light Touch: Normal Motor strength exam: RUE: 5, LUE: 5, RLE: 5, LLE: 5 Eye Response: (4) open spontaneously Motor Response: (6) obeys commands Verbal Response: (5) oriented Psychiatric exam: Present: normal affect, normal mood Skin exam: Present: normal color. Absent: rash, erythema Course Vital Signs 02/25/22 02/25/22 15:19 17:22 Temperature 98 F Pulse Rate 57 L 56 L Respiratory 16 16 Rate Blood Pressure 182/112 147/106 O2 Sat by Pulse 98 99 Oximetry Medical Decision Making - Medical Decision Making Patient reevaluated and resting complain bed. Patient family updated on results and need for follow-up. - Lab Data Result diagrams: 02/25/22 15:40 02/25/22 15:40 Lab Results 02/25/22 02/25/22 02/25/22 Range/Units 15:40 15:40 15:40 WBC 7.4 (3.8-10.6) k/uL RBC 4.80 (4.30-5.90) m/uL Hgb 16.2 (13.0-17.5) gm/dL Hct 45.5 (39.0-53.0) % MCV 94.8 (80.0-100.0) fL MCH 33.7 (25.0-35.0) pg MCHC 35.6 (31.0-37.0) g/dL RDW 12.3 (11.5-15.5) % Plt Count 225 (150-450) k/uL MPV 8.1 Neutrophils % 61 % Lymphocytes % 29 % Monocytes % 6 % Eosinophils % 3 % Basophils % 1 % Neutrophils # 4.5 (1.3-7.7) k/uL Lymphocytes # 2.1 (1.0-4.8) k/uL Monocytes # 0.4 (0-1.0) k/uL Eosinophils # 0.2 (0-0.7) k/uL Basophils # 0.0 (0-0.2) k/uL PT 9.8 (9.0-12.0) sec INR 0.9 (<1.2) APTT 25.0 (22.0-30.0) sec D-Dimer (<0.60) mg/L FEU Sodium 140 (137-145) mmol/L Potassium 4.5 (3.5-5.1) mmol/L Chloride 105 (98-107) mmol/L Carbon Dioxide 28 (22-30) mmol/L Anion Gap 7 mmol/L BUN 16 (9-20) mg/dL Creatinine 1.26 H (0.66-1.25) mg/dL Est GFR (CKD-EPI)AfAm 77 (>60 ml/min/1.73 sqM) Est GFR (CKD-EPI)NonAf 67 (>60 ml/min/1.73 sqM) Glucose 93 (74-99) mg/dL Calcium 9.3 (8.4-10.2) mg/dL Magnesium 2.1 (1.6-2.3) mg/dL Total Bilirubin 0.8 (0.2-1.3) mg/dL AST 30 (17-59) U/L ALT 45 (4-49) U/L Alkaline Phosphatase 63 (38-126) U/L Troponin I (0.000-0.034) ng/mL Total Protein 7.1 (6.3-8.2) g/dL Albumin 4.4 (3.5-5.0) g/dL 02/25/22 02/25/22 Range/Units 15:40 15:40 WBC (3.8-10.6) k/uL RBC (4.30-5.90) m/uL Hgb (13.0-17.5) gm/dL Hct (39.0-53.0) % MCV (80.0-100.0) fL MCH (25.0-35.0) pg MCHC (31.0-37.0) g/dL RDW (11.5-15.5) % Plt Count (150-450) k/uL MPV Neutrophils % % Lymphocytes % % Monocytes % % Eosinophils % % Basophils % % Neutrophils # (1.3-7.7) k/uL Lymphocytes # (1.0-4.8) k/uL Monocytes # (0-1.0) k/uL Eosinophils # (0-0.7) k/uL Basophils # (0-0.2) k/uL PT (9.0-12.0) sec INR (<1.2) APTT (22.0-30.0) sec D-Dimer <0.17 (<0.60) mg/L FEU Sodium (137-145) mmol/L Potassium (3.5-5.1) mmol/L Chloride (98-107) mmol/L Carbon Dioxide (22-30) mmol/L Anion Gap mmol/L BUN (9-20) mg/dL Creatinine (0.66-1.25) mg/dL Est GFR (CKD-EPI)AfAm (>60 ml/min/1.73 sqM) Est GFR (CKD-EPI)NonAf (>60 ml/min/1.73 sqM) Glucose (74-99) mg/dL Calcium (8.4-10.2) mg/dL Magnesium (1.6-2.3) mg/dL Total Bilirubin (0.2-1.3) mg/dL AST (17-59) U/L ALT (4-49) U/L Alkaline Phosphatase (38-126) U/L Troponin I <0.012 (0.000-0.034) ng/mL Total Protein (6.3-8.2) g/dL Albumin (3.5-5.0) g/dL - Radiology Data Radiology results: report reviewed (Ultrasound negative for DVT) Interpreted by me: Chest x-ray reveals no acute process Disposition Clinical Impression: Arm pain Disposition: HOME SELF-CARE Condition: Stable Instructions (If sedation given, give patient instructions): Paresthesia (ED) Additional Instructions: Prescription for steroids has been sent to pharmacy. Please do follow-up to primary care physician as well as her back doctor in the next couple days for recheck. Return for weakness, difficulty with coordination of controlling the arm, increased pain, color change or rash, worsening symptoms or any other concerns. Prescriptions: methylPREDNISolone Dose Pack [Medrol Dose Pack] 4 mg PO DIRECTED #21 tab Is patient prescribed a controlled substance at d/c from ED?: No Referrals: Clyde Snell DO [Primary Care Provider] - 1-2 days Angela Haas DO [Doctor of Osteopathic Medicine] - 1-2 days Time of Disposition: 19:01
--- NOTE | 2022-02-25 18:09 | XR ---
EXAMINATION TYPE: XR chest 2V DATE OF EXAM: 02/25/2022 5:42 PM COMPARISON: Chest radiographs from 09/10/2018 TECHNIQUE: XR chest 2V Frontal and lateral views of the chest. CLINICAL INDICATION:Male, 46 years old with history of arm pain; FINDINGS: Lungs/Pleura: There is no evidence of pleural effusion, focal consolidation, or pneumothorax. Pulmonary vascularity: Unremarkable. Heart/mediastinum: Cardiomediastinal silhouette is unremarkable. Musculoskeletal: No acute osseous pathology. IMPRESSION: No acute cardiopulmonary disease/process.
--- NOTE | 2022-02-25 18:32 | US ---
EXAMINATION TYPE: US venous doppler duplex UE RT DATE OF EXAM: 02/25/2022 COMPARISON: NONE CLINICAL HISTORY: pain. Pt states he gets a tingly feeling down his right arm. No hx of DVT, not on b lood thinners SIDE PERFORMED: Right Right Arm: No evidence for DVT Grayscale, color doppler, spectral doppler imaging performed of the deep veins of the upper extremiti es. There is normal flow, compressibility and vascular waveforms. IMPRESSION: No evidence of deep vein to most of the right nephrectomy..
[2022-02-25] MEDS ORDERED: dexAMETHasone 2 MG TAB PO STA (19:01)
[2022-02-25 19:25] VITALS: BP 132/98; PULSE 82; RESP 18
== END 2022-02-25 19:25 | disposition home or self-care (01) ==
LOC: EC 14:54
DX: M79.601 Pain in right arm (principal)
CPT/HCPCS: 36415; 93005; 85379; 80053; 83735; 84484; 85025; 85610; 85730; 71046; 93971; 99284; J8540